=== PATIENT | male | born 1970 | race African-American/Black ===

== ENCOUNTER 2017-02-26 03:30 | Emergency (ER) | payer SELFPAY ==
[~2017-02-26] VITALS: Ht 188 cm; Wt 163.3 kg
[2017-02-26 04:28] LABS: BILIRUBIN,URINE NEGATIVE (NEG); GLUCOSE,URINE NEGATIVE (NEG); NITRITE,URINE NEGATIVE (NEG); PROTEIN,URINE NEGATIVE (NEG-TRACE); UROBILINOGEN,URINE 0.2 mg/dL (0.2 mg/dL)
[2017-02-26 04:32] LABS: BACTERIA,URINE 0 /HPF (0-FEW); RBC,URINE OCC /HPF (0-2); SQUAMOUS EPITHELIAL CELL,UR OCC /LPF; WBC,URINE 0 /HPF (0-4)
--- NOTE | 2017-02-26 05:21 | RAD ---
INDICATION: Irritation and swelling of scrotum COMPARISON: None. TECHNIQUE: Grayscale, color and spectral doppler ultrasound images obtained of the scrotum. FINDINGS: Right Testicle: 33 x 27 mm. Vascular flow is identified. Left Testicle: 34 x 23 mm. Vascular flow is identified. Multiple small right epididymal cyst measuring up to 5 mm as well as larger left epididymal cyst measuring up to 20 mm. Mild hydrocele. Scrotal wall thickening right greater than left. Pampiniform plexus measures up to 3 mm on the right. Swelling overlying the penile region as well. IMPRESSION: 1. Vascular flow is seen to the bilateral testicles. 2. Bilateral epididymal cysts. 3. Small hydrocele. 4. Subcutaneous swelling is seen overlying the scrotal and penile region. This is nonspecific in nature but infectious etiology is within the differential. There is a couple of small echogenic foci seen within the soft tissues. Could be secondary to calcifications within the area but a few flecks of air are within the soft tissues are not excluded on this examination. Would correlate with symptoms in the region since a soft tissue infection can have this appearance. No drainable fluid collection within the subcutaneous soft tissues. 5. Borderline dilation of the pampiniform plexus on the right. Electronically signed by: Kyle Sung MD (02/26/2017 5:18 AM) [facility]
--- NOTE | 2017-02-26 06:24 | PHYS DOC ---
Past Medical History Past Medical History: Hypertension Past Surgical History: No Surgical History Additional Information: I CIGARETTE EVERY OTHER DAY Alcohol Use: Occasionally Drug Use: None Adult General Chief Complaint Chief Complaint: TESTICULAR PAIN OR INJURY HPI HPI Patient is a 46 year old male who presents with penis pain. Patient reports 3 week history of groin itching tonight with onset of swelling and pain to the penis. He also reports bilateral testicular discomfort. Denies fevers or chills , nausea or vomiting, abdominal pain, urinary retention, penile discharge. He has been applying antifungal powder without relief of symptoms. Denies any known past medical history including diabetes. Review of Systems Review of Systems Constitutional: Denies fever or chills HENT: Denies nasal congestion or sore throat Respiratory: Denies cough or shortness of breath Cardiovascular: Denies chest pain or edema GI: Denies abdominal pain, nausea, vomiting, bloody stools or diarrhea : reports penis pain & swelling Musculoskeletal: Denies back pain or joint pain Integument: Denies rash or skin lesions Neurologic: Denies headache, focal weakness or sensory changes Current Medications Current Medications Current Medications Medications (Trade) Dose Ordered Sig/Alina Start Time Stop Time Status Last Admin Dose Admin Info (Do NOT chart on this entry -- for MONITORING) 1 each PRN DAILY PRN 02/26/17 07:00 02/28/17 06:59 Iohexol (Omnipaque 300 Mg/ml) 75 ml 1X ONCE 02/26/17 07:00 02/26/17 07:01 DC 02/26/17 07:16 75 ML Allergies Allergies Allergies Coded Allergies Type Severity Reaction Last Updated Verified aspirin Adverse Reaction Intermediate chest pain 02/26/17 Yes Physical Exam Physical Exam Constitutional: obese, no acute distress, non-toxic appearance. HENT: Normocephalic, atraumatic, bilateral external ears normal, oropharynx moist, nose normal. Eyes: PERRLA, EOMI, conjunctiva normal, no discharge. Neck: supple, no stridor. Cardiovascular: RRR, no murmurs, no edema. Lungs & Thorax: LCTAB, no wheezing, no respiratory distress. Abdomen: soft, nontender, nondistended. : circumcised penis generalized swelling of shaft greater on the left, no discharge, no rash or vesicles, generalized scrotal tenderness without testicular mass or asymmetry. normal skin color, no crepitus. Skin: Warm, dry, no erythema, no rash. Back: No CVA tenderness. Extremities: No tenderness, no edema. Neurologic: Alert and oriented X 3, no focal deficits noted. Psychologic: Affect normal, judgement normal, mood normal. Current Patient Data Vital Signs Vital Signs Date Time Temp Pulse Resp B/P (MAP) Pulse Ox O2 Delivery O2 Flow Rate FiO2 02/26/17 03:45 98.3 74 16 177/93 (121) 98 Room Air 98.3 Lab Values Laboratory Tests Test 02/26/17 04:10 02/26/17 05:42 Urine Collection Type Unknown Urine Color Yellow Urine Clarity Clear Urine pH 7.0 Urine Specific [place] 1.015 Urine Protein Negative mg/dL (NEG-TRACE) Urine Glucose (UA) Negative mg/dL (NEG) Urine Ketones (Stick) Negative mg/dL (NEG) Urine Blood Negative (NEG) Urine Nitrite Negative (NEG) Urine Bilirubin Negative (NEG) Urine Urobilinogen Dipstick 0.2 mg/dL (0.2 mg/dL) Urine Leukocyte Esterase Negative (NEG) Urine RBC Occ /HPF (0-2) Urine WBC 0 /HPF (0-4) Urine Squamous Epithelial Cells Occ /LPF Urine Bacteria 0 /HPF (0-FEW) Urine Mucus Slight /LPF Glucose (Fingerstick) 92 mg/dL (70-99) EKG EKG [] Radiology/Procedures Radiology/Procedures PROCEDURE: TESTICULAR/SCROTUM INDICATION: Irritation and swelling of scrotum COMPARISON: None. TECHNIQUE: Grayscale, color and spectral doppler ultrasound images obtained of the scrotum. FINDINGS: Right Testicle: 33 x 27 mm. Vascular flow is identified. Left Testicle: 34 x 23 mm. Vascular flow is identified. Multiple small right epididymal cyst measuring up to 5 mm as well as larger left epididymal cyst measuring up to 20 mm. Mild hydrocele. Scrotal wall thickening right greater than left. Pampiniform plexus measures up to 3 mm on the right. Swelling overlying the penile region as well. IMPRESSION: 1. Vascular flow is seen to the bilateral testicles. 2. Bilateral epididymal cysts. 3. Small hydrocele. 4. Subcutaneous swelling is seen overlying the scrotal and penile region. This is nonspecific in nature but infectious etiology is within the differential. There is a couple of small echogenic foci seen within the soft tissues. Could be secondary to calcifications within the area but a few flecks of air are within the soft tissues are not excluded on this examination. Would correlate with symptoms in the region since a soft tissue infection can have this appearance. No drainable fluid collection within the subcutaneous soft tissues. 5. Borderline dilation of the pampiniform plexus on the right. Electronically signed by: Sara De Leon MD (02/26/2017 5:18 AM) [facility] DICTATED and SIGNED BY: SARA DE LEON MD DATE: 02/26/17 0510 [] Course & Med Decision Making Course & Med Decision Making Pertinent Labs and Imaging studies reviewed. (See chart for details) The patient presents with penile pain and swelling. Obtained ultrasound and UA. Ultrasound shows possible air. I [facility] who discussed with Dr. Gotti, urologist at [facility]. I was concerned that air could possibly represent Rita's gangrene although not suggested based on clinical presentation. Dr. Gotti recommends CT pelvis. If no air, would discharge home on doxycycline for outpatient follow up with Dr. Barcenas at [facility]. May discuss transfer if abnormal findings identified. Patient agrees with plan of care, results pending at end of my shift. Will transfer care to Dr. Gonzalez to follow up & disposition accordingly. Aguilar Bailey MD CT read IMPRESSION: 1. Mild scrotal swelling. No evidence of fasciitis or extension of inflammation. 2. Bladder wall thickening indicates chronic outlet obstruction or inflammation. Correlate with urinalysis. 3. Correlate with physical examination to assess for a small fat-containing left inguinal hernia. One or more of the following individualized dose reduction techniques were utilized for this examination: 1. Automated exposure control. 2. Adjustment of the mA and/or kV according to patient size. 3. Use of iterative reconstruction technique. Dr Avina note: 0807 pt seen and re-evaluated by me Gen: Patient sleeping in the room, no distress, nontoxic RESP: Lungs clear to auscultation bilaterally, no tachypnea CARD: Equal pulses, normal perfusion, RRR ABD: Abdomen soft nontender nondistended. : No clinical signs of torsion, no discharge observed, is swelling of skin without signs of phimosis or paraphimosis. Swelling of skin consistent with balanitis. No lesions. No testicular swelling EXTR: SROM, no swelling, no edema NEURO: No focal neurological deficits Patient and family updated with CT results, plan of care and follow-up discussed , patient and family agreed to follow up as directed. Dragon Disclaimer Dragon Disclaimer This electronic medical record was generated, in whole or in part, using a voice recognition dictation system. Departure Departure Impression: Primary Impression: Balanitis Additional Impression: Testicular/scrotal pain Disposition: HOME, SELF-CARE Condition: STABLE Referrals: NO PCP (PCP) Patient Instructions: Balanitis and Foreskin Hygiene, Testicular Problems and Self-Exam Additional Instructions: He told us you have a PCP to follow up with please follow-up with your PCP in 3- 5 days. Please follow-up with Dr. Danish Barcenas (urology, call [phone] for appointment) for follow-up and reevaluation. Scripts Clotrimazole (CLOTRIMAZOLE) 15 Gm Cream..g. 1 FAITH TP BID for 10 Days, #30 GM Prov: Maia AVINA MD 02/26/17 Doxycycline Hyclate (DOXYCYCLINE HYCLATE) 100 Mg Tablet 1 TAB PO BID, #20 TAB Prov: Maia AVINA MD 02/26/17 Problem Qualifiers AGUILAR BAILEY MD Feb 26, 2017 06:24 Maia AVINA MD Feb 26, 2017 08:18
[2017-02-26] MEDS ORDERED: CONTRAST GIVEN MC PRN (07:00)
[2017-02-26] MEDS ORDERED: IOHEXOL 300 MG/ML 75 ML VIAL IV ONE (07:00)
--- NOTE | 2017-02-26 07:49 | RAD ---
EXAM: CT pelvis with contrast. HISTORY: Peroneal edema. Abnormal ultrasound.. TECHNIQUE: CT of the pelvis was performed after the intravenous administration of 75 mL Omnipaque 300. COMPARISON: Ultrasound 02/26/2017. FINDINGS: There appear to be small bilateral hydroceles, better seen on prior ultrasound. There is mild swelling of the scrotal skin without a clear soft tissue collection or soft tissue gas. No extension of subcutaneous edema into the perineum or surrounding tissues is identified. A small left inguinal hernia is suspected, containing only fat. The bladder is decompressed but there is some wall thickening. There are no pathologically enlarged lymph nodes. The appendix is not inflamed. IMPRESSION: 1. Mild scrotal swelling. No evidence of fasciitis or extension of inflammation. 2. Bladder wall thickening indicates chronic outlet obstruction or inflammation. Correlate with urinalysis. 3. Correlate with physical examination to assess for a small fat-containing left inguinal hernia. One or more of the following individualized dose reduction techniques were utilized for this examination: 1. Automated exposure control. 2. Adjustment of the mA and/or kV according to patient size. 3. Use of iterative reconstruction technique.
[2017-02-26] MEDS ORDERED: CLOT15CR4 TP (08:17)
[2017-02-26] MEDS ORDERED: DOXY100T PO (08:17)
[2017-02-26 09:00] VITALS: BP 177/93
== END 2017-02-26 09:09 | disposition home or self-care (01) ==
LOC: ER 03:30
DX: N48.1 Balanitis (principal); I10 Essential (primary) hypertension; F17.210 Nicotine dependence, cigarettes, uncomplicated; Z88.8 Allergy status to other drugs, medicaments and biological substances; Z79.899 Other long term (current) drug therapy
CPT/HCPCS: 74170; 76870; 81001; 82962; 87491; 87591; 99285; Q9967